=== PATIENT | female | born 2000 | race African-American/Black ===

== ENCOUNTER 2022-10-25 18:13 | Emergency (ER) | payer MEDICAID ==
[~2022-10-25] VITALS: Ht 165.1 cm; Wt 75.0 kg
[2022-10-25 18:34] VITALS: BP 132/91; PULSE 92; RESP 16; TEMP 98.6; O2SAT 100
== END 2022-10-25 21:21 | disposition left against medical advice (07) ==
LOC: ER 18:13
DX: Z53.21 Procedure and treatment not carried out due to patient leaving prior to being seen by health care provider (principal)
CPT/HCPCS: 99281